=== PATIENT | male | born 1980 | race Caucasian/White ===

== ENCOUNTER 2017-10-11 23:12 | Emergency (ER) | payer MEDICARE ==
[2017-10-11 23:23] VITALS: BP 142/91; PULSE 69; RESP 18; TEMP 98.2
--- NOTE | 2017-10-11 23:42 | ED ---
General Adult HPI - General Chief complaint: Extremity Injury, Upper Stated complaint: wrist pain Time Seen by Provider: 10/11/17 23:26 Source: patient, RN notes reviewed Mode of arrival: ambulatory Limitations: no limitations - History of Present Illness Initial comments: 37-year-old male presents emergency department with chief complaint of right wrist pain. He lost his footing due to his knee down the steps and fell onto his left wrist. Patient states he did not hit his head there is no back pain there is no knee pain and no other injury from the incident. Patient states that he simply has right wrist pain. Patient of the pain with movement of the wrist. Did not take anything for pain prior to arrival. They were concerned due to the patient's continued pain so they thought that they should be evaluated. Patient denies any recent fever, chills, shortness of breath, chest pain, back pain, abdominal pain, nausea vomiting, numbness or tingling, dysuria or hematuria, constipation or diarrhea, headaches or visual changes, or any other current symptoms. - Related Data Home Medications Medication Instructions Recorded Confirmed HYDROcodone/APAP 7.5-325MG [[place] 1 tab PO QID 10/11/17 10/11/17 7.5-325] Ibuprofen [Motrin] 1 tab PO TID 10/11/17 10/11/17 buPROPion [Wellbutrin] 1 tab PO DAILY 10/11/17 10/11/17 Allergies Allergy/AdvReac Type Severity Reaction Status Date / Time bacitracin Allergy Rash/Hives Verified 10/11/17 23:20 [From Neosporin ([id number])] morphine Allergy Chest Pain Verified 10/11/17 23:20 neomycin Allergy Rash/Hives Verified 10/11/17 23:20 [From Neosporin ([id number])] polymyxin B Allergy Rash/Hives Verified 10/11/17 23:20 [From Neosporin ([id number])] Review of Systems ROS Statement: Those systems with pertinent positive or pertinent negative responses have been documented in the HPI. ROS Other: All systems not noted in ROS Statement are negative. Past Medical History Past Medical History: No Reported History History of Any Multi-Drug Resistant Organisms: None Reported Past Surgical History: Adenoidectomy, Hernia Repair, Orthopedic Surgery Past Psychological History: Anxiety, Bipolar, Depression Smoking Status: Current every day smoker Past Alcohol Use History: None Reported Past Drug Use History: None Reported General Exam - General Exam Comments Initial Comments: General: The patient is awake and alert, in no distress, and does not appear acutely ill. Neck: The neck is supple, there is no tenderness. Cardiovascular: There is a regular rate and rhythm. No murmur, rub or gallop is appreciated. Respiratory: Lungs are clear to auscultation, respirations are non-labored, breath sounds are equal. No wheezes, stridor, rales, or rhonchi. Musculoskeletal: Sensation intact with 2+ pulses throughout the time. Full range of motion of right elbow. Patient has pain with range of motion of the right wrist pain at the distal radial and ulnar aspect. No anatomical snuffbox tenderness. No tenderness to palpation of the right hand. Neurological: CN II-XII intact, There are no obvious motor or sensory deficits. Coordination appears grossly intact. Speech is normal. Skin: Skin is warm and dry and no rashes or lesions are noted. Psychiatric: Normal mood and affect. Limitations: no limitations Course Vital Signs 10/11/17 23:21 Temperature 98.2 F Pulse Rate 69 Respiratory 18 Rate Blood Pressure 142/91 O2 Sat by Pulse 97 Oximetry Medical Decision Making - Medical Decision Making 37-year-old male presents emergency department with chief complaint of right wrist pain. At this time we did discuss patient's x-ray results. This time we discussed right wrist sprain. Discussed follow-up return parameters and all questions. Patient stated that he understood any significant this plan. All questions have been answered. He will be discharged. - Radiology Data Radiology results: report reviewed, image reviewed Disposition Clinical Impression: Right wrist sprain Disposition: HOME SELF-CARE Condition: Stable Instructions: Wrist Injury (ED) Additional Instructions: Please use medication as discussed. Please follow up with family doctor if symptoms have not improved over the next two days. Please return to the emergency room if your symptoms increase or worsen or for any other concerns. Referrals: Candida Donald MD [STAFF PHYSICIAN] - 1-2 days Time of Disposition: 00:41
--- NOTE | 2017-10-12 00:30 | XR ---
EXAMINATION TYPE: XR wrist complete RT DATE OF EXAM: 10/12/2017 COMPARISON: NONE HISTORY: Fell down the stairs. Pain. TECHNIQUE: 4 views FINDINGS: I see no fracture nor dislocation. Scaphoid bone is intact. Joint spaces appear normal. IMPRESSION: Normal right wrist
== END 2017-10-12 00:44 | disposition home or self-care (01) ==
LOC: EC 23:12
DX: S63.501A Unspecified sprain of right wrist, initial encounter (principal); F32.9 Major depressive disorder, single episode, unspecified; F41.9 Anxiety disorder, unspecified; F17.200 Nicotine dependence, unspecified, uncomplicated; Z79.1 Long term (current) use of non-steroidal anti-inflammatories (NSAID); Z79.891 Long term (current) use of opiate analgesic; Z79.899 Other long term (current) drug therapy; Z88.1 Allergy status to other antibiotic agents; Z88.5 Allergy status to narcotic agent; W10.9XXA Fall (on) (from) unspecified stairs and steps, initial encounter; Y93.01 Activity, walking, marching and hiking
CPT/HCPCS: 99283